=== PATIENT | male | born 1985 | race Caucasian/White ===

== ENCOUNTER → 2017-07-02 | Outpatient (CLI) | payer BC ==
[2013-12-15 12:00] VITALS: BP 94/60
--- NOTE | 2017-07-02 16:01 | RAD ---
2 views of the abdomen 07/02/2017 Indication: Diarrhea x6 months. Comparison study: Radiographs December 15, 2013 Discussion: The bowel gas pattern is nonobstructive. No evidence of pneumoperitoneum is identified. No acute osseous abnormalities are seen. Impression: No radiographic evidence of acute intra-abdominal abnormality
== END | disposition home or self-care (01) ==
LOC: PMG 15:24
PROVIDERS: ATTEND Physician Assistant
DX: R19.7 Diarrhea, unspecified (principal)
CPT/HCPCS: 74021

== ENCOUNTER 2017-09-12 07:37 | Emergency (ER) | payer BC ==
[~2017-09-12] VITALS: Ht 180.3 cm; Wt 74.8 kg
[2017-09-12] MEDS ORDERED: ASPIRIN 81 MG TAB.CHEW PO ONE (08:00)
[2017-09-12 08:24] LABS: BASO # 0.1 x10^3/uL (0.0-0.2); BASO % 1 % (0-3); EOS # 0.1 x10^3/uL (0.0-0.7); EOS % 2 % (0-3); HEMATOCRIT 48.6 % (39.0-53.0); HEMOGLOBIN 16.5 g/dL (13.0-17.5); LYMPH # 3.3 x10^3/uL (1.0-4.8); LYMPH % 37 % (24-48); MEAN CORPUSCULAR HEMOGLOBIN 30 pg (25-35); MEAN CORPUSCULAR HGB CONC 34 g/dL (31-37); MEAN CORPUSCULAR VOLUME 87 fL (79-100); MONO # 0.6 x10^3/uL (0.0-1.1); MONO % 6 % (0-9); NEUT % 55 % (31-73); PLATELET COUNT 217 x10^3/uL (140-400); RED BLOOD COUNT 5.56 x10^6/uL (4.30-5.70); WHITE BLOOD COUNT 9.1 x10^3/uL (4.0-11.0)
--- NOTE | 2017-09-12 08:24 | PHYS DOC ---
Past History Past Medical History: No Pertinent History, Other Past Surgical History: Other Smoking: Cigarettes, Less than 1pk/day Alcohol Use: Sober Drug Use: Marijuana Adult General Chief Complaint Chief Complaint: CHEST PAIN-CARDIAC NATURE HPI HPI 31-year-old male patient complaining of episodes of chest pain since yesterday. Patient states he had one episode of chest pain that woke him up yesterday morning and last for several hours as a tightness in the substernal area and left side of chest without radiation. Patient complaining of shortness of breath and episode of palpitation without nausea, dizziness, focal neuro deficit , fever and chills, cough and congestion. Patient states the pain resolved spontaneously and he woke up this morning with the same pain and rated his pain 10/10 that gradually decreased to 7/10. Patient states he had increase of physical activity at his work for the last few days and denies direct injury or history of the same pain. Patient doesn't have any medical problem but has positive family history of coronary artery disease. Patient denies using drugs and alcohol and admitted to smoke cigarettes. Review of Systems Review of Systems Constitutional: Denies fever or chills [] Eyes: Denies change in visual acuity, redness, or eye pain [] HENT: Denies nasal congestion or sore throat [] Respiratory: Denies cough, reports shortness of breath [] Cardiovascular: No additional information not addressed in HPI [] GI: Denies abdominal pain, nausea, vomiting, bloody stools or diarrhea [] : Denies dysuria or hematuria [] Musculoskeletal: Denies back pain or joint pain [] Integument: Denies rash or skin lesions [] Neurologic: Denies headache, focal weakness or sensory changes [] Endocrine: Denies polyuria or polydipsia [] All other systems were reviewed and found to be within normal limits, except as documented in this note. Current Medications Current Medications Current Medications Medications (Trade) Dose Ordered Sig/Toro Start Time Stop Time Status Last Admin Dose Admin Aspirin (Children'S Aspirin) 324 mg 1X ONCE 09/12/17 08:00 09/12/17 08:01 DC Allergies Allergies Allergies Coded Allergies Type Severity Reaction Last Updated Verified Penicillins Allergy Intermediate RASH/HIVES 12/15/13 Yes Sulfa (Sulfonamide Antibiotics) Allergy Intermediate 12/15/13 Yes Physical Exam Physical Exam Constitutional: Well developed, well nourished, mild distress, non-toxic appearance. [] HENT: Normocephalic, atraumatic, bilateral external ears normal, oropharynx moist, no oral exudates, nose normal. [] Eyes: PERRLA, EOMI, conjunctiva normal, no discharge. [] Neck: Normal range of motion, no tenderness, supple, no stridor. [] Cardiovascular:Heart rate regular rhythm, no murmur [] Lungs & Thorax: Bilateral breath sounds clear to auscultation [] Abdomen: Bowel sounds normal, soft, no tenderness, no masses, no pulsatile masses. [] Skin: Warm, dry, no erythema, no rash. [] Back: No tenderness, no CVA tenderness. [] Extremities: No tenderness, no cyanosis, no clubbing, ROM intact, no edema. [] Neurologic: Alert and oriented X 3, normal motor function, normal sensory function, no focal deficits noted. [] Psychologic: Affect normal, judgement normal, mood normal. [] EKG EKG EKG interpreted by me. EKG at 0 755 showed rhythm at rate of 84, poor R-wave progress in anteroseptal leads, no acute ST and T-wave abnormalities[] Radiology/Procedures Radiology/Procedures [][place] [address] IMAGING REPORT Signed PATIENT: ADDY ALTAMIRANO ACCOUNT: [id number] : 1985 LOCATION: ER AGE: 31 SEX: M EXAM STATUS: REG ER ORD. PHYSICIAN: NANCY LATHAM MD REASON: chest pain PROCEDURE: CHEST PA & LATERAL Chest, 2 views, 09/12/2017: HISTORY: Chest pain The heart size and pulmonary vascularity are normal. No pulmonary infiltrate is seen. There is no evidence of pleural fluid. IMPRESSION: No acute cardiopulmonary abnormality is detected. Electronically signed by: Sadiq Perez MD (09/12/2017 8:57 AM) [facility] DICTATED AND SIGNED BY: SADIQ PEREZ MD DATE: 09/12/17 0856 CC: NANCY LATHAM MD; HENNY TAYLOR ~ Course & Med Decision Making Course & Med Decision Making Pertinent Labs and Imaging studies reviewed. (See chart for details) Evaluation of patient in ER showed 31-year-old male patient with complaining of episodes of substernal chest pain since yesterday and left side of chest pain for several days after increasing of physical activity at work. Patient had unremarkable physical exam and labs including d-dimer and EKG. Patient felt better with treatment in ER and instructed to quit smoking and follow with primary care physician and increase fluid intake. Dragon Disclaimer Dragon Disclaimer This electronic medical record was generated, in whole or in part, using a voice recognition dictation system. Departure Departure: Impression: Primary Impression: Musculoskeletal chest pain Additional Impressions: Tobacco abuse Tobacco abuse counseling Disposition: HOME, SELF-CARE (At 0932) Condition: IMPROVED Referrals: HENNY TAYLOR (PCP) Patient Instructions: Musculoskeletal Pain, Smoking Cessation, Tips For Success Additional Instructions: Drink plenty of liquids Follow-up with your primary care physician in 3-5 days Return to ER if not getting better Scripts Cyclobenzaprine Hcl (CYCLOBENZAPRINE HCL) 10 Mg Tablet 1 TAB PO TID, #30 TAB Prov: NANCY LATHAM MD 09/12/17 Naproxen (NAPROSYN) 500 Mg Tablet 1 TAB PO BID, #20 TAB 1 Refill Prov: NANCY LATHAM MD 09/12/17 Problem Qualifiers NANCY LATHAM MD Sep 12, 2017 08:24
[2017-09-12] MEDS ORDERED: KETOROLAC 30 MG/ML VIAL. IV ONE (08:30)
[2017-09-12 08:56] LABS: ALBUMIN 4.1 g/dL (3.4-5.0); ALBUMIN/GLOBULIN RATIO 1.2 (1.0-1.7); CALCIUM 8.9 mg/dL (8.5-10.1); GFR 87.7; MAGNESIUM 1.9 mg/dL (1.8-2.4); POTASSIUM 3.5 mmol/L (3.5-5.1); TOTAL BILIRUBIN 0.6 mg/dL (0.2-1.0); TOTAL PROTEIN 7.6 g/dL (6.4-8.2)
[2017-09-12] MEDS ORDERED: IV NORMAL SALINE 1,000ML 1,000 ML IV ONE (09:00)
--- NOTE | 2017-09-12 09:00 | RAD ---
Chest, 2 views, 09/12/2017: HISTORY: Chest pain The heart size and pulmonary vascularity are normal. No pulmonary infiltrate is seen. There is no evidence of pleural fluid. IMPRESSION: No acute cardiopulmonary abnormality is detected. Electronically signed by: Sadiq Perez MD (09/12/2017 8:57 AM) [facility]
[2017-09-12 09:10] VITALS: BP 122/76
[2017-09-12] MEDS ORDERED: CYCL-331 PO (09:35)
[2017-09-12] MEDS ORDERED: NAPR-683 PO (09:35)
== END 2017-09-12 10:15 | disposition home or self-care (01) ==
LOC: ER 07:37
DX: R07.89 Other chest pain (principal); F17.210 Nicotine dependence, cigarettes, uncomplicated; Z71.6 Tobacco abuse counseling; Z88.0 Allergy status to penicillin; Z88.2 Allergy status to sulfonamides
CPT/HCPCS: 36415; 71046; 80053; 82553; 83690; 83735; 84484; 85025; 85379; 85610; 93005; 96374; 99285; J1885; J7030